=== PATIENT | female | born 1990 | race Hispanic/Latino ===

== ENCOUNTER 2022-09-21 14:49 | Emergency (ER) | payer OTHER ==
[~2022-09-21] VITALS: Ht 162.6 cm; Wt 83.9 kg
[2022-09-21] MEDS ORDERED: DICYCLOMINE HCL 20 MG/2 ML VIAL IM ONE ×2 (15:15→15:28)
[2022-09-21 15:58] LABS: COLOR,URINE YELLOW (YELLOW); KETONES,URINE NEGATIVE (NEGATIVE); LEUKOCYTE ESTERASE ,URINE TRACE (NEGATIVE); NITRITE,URINE NEGATIVE (NEGATIVE); PROTEIN,URINE DIPSTICK 1+ (NEGATIVE); URINE UROBILINOGEN 2 mg/dL (0.2 - 1)
[2022-09-21 16:00] LABS: CLARITY,URINE HAZY (CLEAR); WBC,URINE (MAN) 21-50 /HPF (0-5)
[2022-09-21 16:01] LABS: BACTERIA,URINE MODERATE /HPF; EPITHELIAL CELLS,URINE MANY /LPF; MUCUS,URINE FEW (RARE)
[2022-09-21] MEDS ORDERED: CEFUROXIME250 MG PO (16:40)
[2022-09-21] MEDS ORDERED: PYRIDIUM100 MG PO (16:40)
[2022-09-21] MEDS ORDERED: DIPHENHYDRAMINE HCL 25 MG CAP PO ONE ×2 (17:00)
[2022-09-21] MEDS ORDERED: FAMOTIDINE 20 MG TAB PO ONE ×2 (17:00)
[2022-09-21] MEDS ORDERED: FAMOTIDINE 20 MG TAB ONE (17:00)
[2022-09-21] MEDS ORDERED: DIPHENHYDRAMINE HCL 25 MG CAP ONE (17:01)
== END 2022-09-21 16:50 | disposition home or self-care (01) ==
LOC: ER 15:02
DX: R10.9 Unspecified abdominal pain (principal); N39.0 Urinary tract infection, site not specified; R14.0 Abdominal distension (gaseous); R00.2 Palpitations; Z98.84 Bariatric surgery status
CPT/HCPCS: 81001; 81025; 99283; J0500